=== PATIENT | female | born 1990 | race African-American/Black ===

== ENCOUNTER → 2020-09-26 | Outpatient (CLI) | payer OTHER ==
[~2020-09-26] MED LIST: GILPHEX TR TAB1 EACH
== END | disposition home or self-care (01) ==
LOC: PPH VACUNA 17:00
DX: Z23 Encounter for immunization (principal)

== ENCOUNTER 2021-01-07 03:02 | Inpatient (IN) | payer OTHER ==
[~2021-01-07] VITALS: Ht 160 cm; Wt 74.8 kg
[2021-01-08] MEDS ORDERED: GILPHEX TR TAB1 EACH (08:08)
== END 2021-01-09 14:34 | disposition home or self-care (01) | DRG 807 ==
LOC: LDR 03:02 → OB/GYN 03:02
PROVIDERS: ADMIT Obstetrics & Gynecology; ATTEND Obstetrics & Gynecology
PROC: 10E0XZZ Delivery of Products of Conception, External Approach (ICD-10-PCS; principal; 2021-01-07)
PROC: 0W8NXZZ Division of Female Perineum, External Approach (ICD-10-PCS; 2021-01-07)
PROC: 4A1HXFZ Monitoring of Products of Conception, Cardiac Rhythm, External Approach (ICD-10-PCS; 2021-01-07)
DX: O80 Encounter for full-term uncomplicated delivery (principal); Z37.0 Single live birth; Z3A.39 39 weeks gestation of pregnancy; Z20.822 Contact with and (suspected) exposure to COVID-19